=== PATIENT | male | born 1995 | race Hispanic/Latino ===

== ENCOUNTER 2020-02-17 15:35 | Emergency (ER) | payer SELFPAY ==
--- NOTE | 2020-02-17 17:27 | RAD REPORT ---
EXAM DESCRIPTION: RAD - Chest Single View - 02/17/2020 5:14 pm CLINICAL HISTORY: DYSPNEA COMPARISON: None TECHNIQUE: AP portable chest image was obtained 02/17/2020 5:14 pm . FINDINGS: Lungs are clear. Heart and vasculature are normal. No measurable pleural effusion and no p neumothorax. No acute bony abnormality seen. No acute aortic findings suspected. IMPRESSION: No acute cardiopulmonary process.
[2020-02-17] MEDS ORDERED: NA CHLORIDE 0.9% 1,000 ML ONE (17:37)
[2020-02-17] MEDS ORDERED: FENTANYL CITR 100 MCG/2 ML ONE (17:37)
[2020-02-17 18:02] LABS: Albumin 3.8 g/dL (3.4-5.0); Bilirubin Direct 0.1 mg/dL (0-0.2); Bilirubin Total 0.4 mg/dL (0.2-1.0); Ferritin 151.9 ng/mL (26-388); Potassium 3.9 mmol/L (3.5-5.1); Protein, Total 7.7 g/dL (6.4-8.2)
[2020-02-17 18:21] LABS: Absolute Lymphocytes (CBC) 1.4 K/uL (0.7-4.9); Basophils % 0.2 % (0-1.3); Lymphocytes % 21.9 % (15.3-44.8); MPV 9.2 fL (7.6-11.3); RBC Red Blood Cell Count 5.15 M/uL (4.33-5.43)
[2020-02-17 18:31] LABS: Urine Blood NEGATIVE (NEG); Urine Glucose NEGATIVE (NEG); Urine Protein NEGATIVE (NEG)
--- NOTE | 2020-02-17 19:34 | RAD REPORT ---
EXAM DESCRIPTION: CT - Chest For Pe Angio - 02/17/2020 7:17 pm CLINICAL HISTORY: Cough;Chest pain Cough;Chest pain COVID positive abdominal pain COMPARISON: Chest Single View dated 02/17/2020 TECHNIQUE: Dynamically enhanced 3 mm thick images of the chest were obtained during administration o f approximately 150mL Isovue 370 IV contrast. Coronal and oblique MIP reconstruction images were gene rated and reviewed. Exam utilizes a protocol to evaluate the pulmonary arterial tree. All CT scans are performed using dose optimization technique as appropriate and may include automated exposure control or mA/KV adjustment according to patient size. FINDINGS: No pulmonary emboli are identified. The aorta as imaged shows no acute or suspicious finding. No pericardial thickening or effusion. No mass or consolidation of the lung parenchyma. Ground-glass opacities are present in the posterior peripheral aspects of each lower lobe. Trace amount of ground-glass opacification present in the bernadine pheral right middle lobe. No endobronchial lesion. No cavitation, abscess or other complication. No p leural effusion or pleural thickening. No mediastinal or hilar suspicious masses. No chest wall masses or abnormal axillary lymphadenopathy. IMPRESSION: No pulmonary emboli identified. Ground-glass opacification pattern is present. This is a nonspecific pneumonia pattern. Given the pro vided history, this is most likely COVID-19 pneumonia.
[2020-02-17] MEDS ORDERED: MORPHINE 2 MG/ML SYR ONE (19:59)
[2020-02-17] MEDS ORDERED: PROMETHAZINE INJ 25 MG/ML AMP ONE (19:59)
[2020-02-17] MEDS ORDERED: dexAMETHasone 10 MG/ML VIAL ONE (20:00)
[2020-02-17] MEDS ORDERED: NA CHLORIDE 0.9% 250 ML ONE (20:00)
[2020-02-17] MEDS ORDERED: AZITHROMYCIN 500 MG INJ IVPB ONE (20:00)
--- NOTE | 2020-02-17 20:50 | ER ---
Nurse's Notes [facility] Name: Jone Peña Age: 24 yrs Sex: Male : 1995 Arrival Date: 02/17/2020 Time: 15:37 Bed 16 Private MD: Diagnosis: Pneumonia due to SARS-associated coronavirus;Upper abdominal pain, unspecified Presentation: 02/16 15:53 Chief complaint: Patient states: Tested positive on 02-14-2020 at urgent care, reports jl7 LUQ abd pain x 3 days, denies N/V/D. Coronavirus screen: Client denies travel out of the [place] in the last 14 days. At this time, the client does not indicate any symptoms associated with coronavirus-19. Ebola Screen: No symptoms or risks identified at this time. Initial Sepsis Screen: Does the patient meet any 2 criteria? HR > 90 bpm. Does the patient have a suspected source of infection? Yes: Acute abdominal pain. Risk Assessment: Do you want to hurt yourself or someone else? Patient reports no desire to harm self or others. Onset of symptoms was February 14, 2020. Care prior to arrival: None. 15:53 Method Of Arrival: Ambulatory [facility] 15:53 Acuity: LEONEL 3 jl7 Triage Assessment: 15:57 General: Appears in no apparent distress. uncomfortable, Behavior is calm, cooperative, jl7 appropriate for age. Pain: Complains of pain in left upper quadrant Pain currently is 9 out of 10 on a pain scale. Neuro: GI: Patient currently denies diarrhea, nausea, vomiting. Historical: - Allergies: 15:57 No Known Allergies; jl7 - Home Meds: 15:57 None [Active]; jl7 - PMHx: 15:57 None; jl7 - PSHx: 15:57 None; jl7 - Immunization history:: Adult Immunizations not up to date. - Social history:: Smoking status: Patient denies any tobacco usage or history of. Screenin:41 Abuse screen: Denies threats or abuse. Denies injuries from another. Nutritional zb screening: No deficits noted. Tuberculosis screening: No symptoms or risk factors identified. Fall Risk None identified. Assessment: 17:37 General: Appears in no apparent distress. uncomfortable, Behavior is calm, cooperative, zb appropriate for age, Reports chills for 2-3 days, fever for 2-3 days, feeling ill for 2-3 days, fatigue for 2-3 days. Pain: Complains of pain in abdomen and left upper quadrant Pain does not radiate. Pain currently is 8 out of 10 on a pain scale. Quality of pain is described as burning, aching, Is continuous. Neuro: Level of Consciousness is awake, alert, obeys commands, Oriented to person, place, time, situation. Cardiovascular: Capillary refill < 3 seconds in bilateral fingers Patient's skin is warm and dry. Respiratory: Airway is patent Respiratory effort is even, unlabored, Respiratory pattern is regular, symmetrical. GI: Abdomen is flat, non-distended, Bowel sounds present X 4 quads. Abd is soft and non tender in right upper quadrant, right lower quadrant and left lower quadrant Abdomen is tender to palpation in left upper quadrant Mass noted in left upper quadrant. : No signs and/or symptoms were reported regarding the genitourinary system. EENT: No signs and/or symptoms were reported regarding the EENT system. Derm: Skin is intact, is healthy with good turgor, Skin is dry, Skin is normal. Musculoskeletal: Circulation, motion, and sensation intact. Capillary refill < 3 seconds, in bilateral fingers. Range of motion: intact in all extremities. 18:37 Reassessment: Patient appears in no apparent distress at this time. Patient and/or ll2 family updated on plan of care and expected duration. Pain level reassessed. Patient is alert, oriented x 3, equal unlabored respirations, skin warm/dry/pink. family at bedside. 19:30 Reassessment: Patient and/or family updated on plan of care and expected duration. Pain ll2 level reassessed. Patient is alert, oriented x 3, equal unlabored respirations, skin warm/dry/pink. 21:07 Reassessment: Patient and/or family updated on plan of care and expected duration. Pain ll2 level reassessed. Patient is alert, oriented x 3, equal unlabored respirations, skin warm/dry/pink. 21:10 Reassessment: awaiting completion of IV antibiotics for D/c. ll2 21:35 Reassessment: Patient and/or family updated on plan of care and expected duration. Pain ll2 level reassessed. Patient is alert, oriented x 3, equal unlabored respirations, skin warm/dry/pink. Vital Signs: 15:53 BP 116 / 78; Pulse 105; Resp 19; Temp 99.2; Pulse Ox 99% ; Weight 69.85 kg; Height 5 jl7 ft. 7 in. (170.18 cm); Pain 9/10; 18:45 BP 116 / 78; Pulse 106; Resp 20; Pulse Ox 99% on R/A; ll2 19:45 BP 112 / 73; Pulse 101; Resp 18; Temp 99.8; Pulse Ox 100% on R/A; ll2 20:54 BP 112 / 69; Pulse 106; Resp 18; Temp 99.9; Pulse Ox 100% on R/A; ll2 15:53 Body Mass Index 24.12 (69.85 kg, 170.18 cm) jl7 ED Course: 15:37 Patient arrived in ED. ag5 15:57 Triage completed. jl7 15:57 Arm band placed on right wrist. jl7 16:23 Yasmin Payton FNP-C is [facility]. snw 16:23 Omar Theodore MD is Attending Physician. snw 17:12 Nikia Watters, BENJI is Primary Nurse. zb 17:14 Chest Single View XRAY In Process Unspecified. EDMS 17:25 Inserted saline lock: 20 gauge in left antecubital area, using aseptic technique. Blood dh4 collected. 17:41 Patient has correct armband on for positive identification. Placed in gown. Call light zb in reach. Side rails up X 1. Door closed. Noise minimized. 19:17 CT Chest For PE Angio In Process Unspecified. EDMS 21:35 No provider procedures requiring assistance completed. IV discontinued, intact, ll2 bleeding controlled, No redness/swelling at site. Pressure dressing applied. Administered Medications: 17:32 Drug: fentaNYL (PF) 25 mcg Route: IVP; Site: left antecubital; zb 18:32 Follow up: Response: No adverse reaction; RASS: Alert and Calm (0) ll2 17:36 Drug: NS 0.9% 1000 ml Route: IV; Rate: 1 bolus; Site: left femoral; zb 18:45 Follow up: Response: No adverse reaction; IV Status: Completed infusion; IV Intake: ll2 1000ml 20:30 Drug: Phenergan 12.5 mg Route: IVP; Site: left antecubital; ll2 20:50 Follow up: Response: No adverse reaction ll2 20:30 Drug: Zithromax 500 mg Route: IVPB; Infused Over: 1 hrs; Site: left antecubital; ll2 20:50 Follow up: Response: No adverse reaction; IV Status: Completed infusion; IV Intake: ll2 250ml 20:30 Drug: Decadron - Dexamethasone 10 mg Route: IVP; Site: left antecubital; ll2 20:51 Follow up: Response: No adverse reaction ll2 20:31 Drug: morphine 2 mg Route: IVP; Site: left antecubital; ll2 20:50 Follow up: Response: No adverse reaction ll2 Intake: 18:45 IV: 1000ml; Total: 1000ml. ll2 20:50 IV: 250ml; Total: 1250ml. ll2 Outcome: 20:49 Discharge ordered by . snw 21:36 Discharged to home ambulatory. ll2 21:36 Condition: stable 21:36 Discharge instructions given to patient, Instructed on discharge instructions, follow up and referral plans. medication usage, Demonstrated understanding of instructions, follow-up care, medications, Prescriptions given X 3. 21:37 Patient left the ED. ll2 Signatures: Dispatcher [employer] EDMS Yasmin Payton, ASSISTANT GENERAL MANAGER-C ASSISTANT GENERAL MANAGER-Ronenw Michael Zaman RN RN valentina7 Tyler Bruce [facility] Lexa Keith 4 Tatiana Nassar RN RN ll2 Nikia Watters RN RN zb
--- NOTE | 2020-02-17 20:50 | EDPHYS ---
Physician Documentation [facility] Name: Jone Peña Age: 24 yrs Sex: Male : 1995 Arrival Date: 02/17/2020 Time: 15:37 Bed 16 Private MD: ED Physician Omar Theodore HPI: 02/16 17:43 This 24 yrs old Male presents to ER via Ambulatory with complaints of COVID+, snw Abdominal Pain. 17:43 The patient presents with abdominal pain in the left upper quadrant. Onset: The snw symptoms/episode began/occurred gradually, 3 day(s) ago, and became worse today, and became persistent. The symptoms do not radiate. Associated signs and symptoms: none. The symptoms are described as constant. Severity of pain: At its worst the pain was moderate severe. The patient has not experienced similar symptoms in the past. The patient has been recently seen by a physician: Makayla 19 +. Historical: - Allergies: 15:57 No Known Allergies; jl7 - Home Meds: 15:57 None [Active]; jl7 - PMHx: 15:57 None; jl7 - PSHx: 15:57 None; jl7 - Immunization history:: Adult Immunizations not up to date. - Social history:: Smoking status: Patient denies any tobacco usage or history of. ROS: 17:42 Constitutional: Negative for fever, chills, and weight loss, Eyes: Negative for injury, snw pain, redness, and discharge, ENT: Negative for injury, pain, and discharge, Neck: Negative for injury, pain, and swelling, Cardiovascular: Negative for chest pain, palpitations, and edema, Respiratory: Negative for shortness of breath, cough, wheezing, and pleuritic chest pain, Back: Negative for injury and pain, : Negative for injury, bleeding, discharge, and swelling, MS/Extremity: Negative for injury and deformity, Skin: Negative for injury, rash, and discoloration, Neuro: Negative for headache, weakness, numbness, tingling, and seizure, Psych: Negative for depression, anxiety, suicide ideation, homicidal ideation, and hallucinations. 17:42 Abdomen/GI: Positive for abdominal pain. Exam: 17:41 Constitutional: This is a well developed, well nourished patient who is awake, alert, snw and in no acute distress. Head/Face: Normocephalic, atraumatic. Eyes: Pupils equal round and reactive to light, extra-ocular motions intact. Lids and lashes normal. Conjunctiva and sclera are non-icteric and not injected. Cornea within normal limits. Periorbital areas with no swelling, redness, or edema. ENT: Nares patent. No nasal discharge, no septal abnormalities noted. Tympanic membranes are normal and external auditory canals are clear. Oropharynx with no redness, swelling, or masses, exudates, or evidence of obstruction, uvula midline. Mucous membranes moist. Neck: Trachea midline, no thyromegaly or masses palpated, and no cervical lymphadenopathy. Supple, full range of motion without nuchal rigidity, or vertebral point tenderness. No Meningismus. Chest/axilla: Normal chest wall appearance and motion. Nontender with no deformity. No lesions are appreciated. Respiratory: Lungs have equal breath sounds bilaterally, clear to auscultation and percussion. No rales, rhonchi or wheezes noted. No increased work of breathing, no retractions or nasal flaring. Abdomen/GI: Soft, with normal bowel sounds. No distension or tympany. No guarding or rebound. Left upper quad tenderness Back: No spinal tenderness. No costovertebral tenderness. Full range of motion. Skin: Warm, dry with normal turgor. Normal color with no rashes, no lesions, and no evidence of cellulitis. MS/ Extremity: Pulses equal, no cyanosis. Neurovascular intact. Full, normal range of motion. Neuro: Awake and alert, GCS 15, oriented to person, place, time, and situation. Cranial nerves II-XII grossly intact. Motor strength 5/5 in all extremities. Sensory grossly intact. Cerebellar exam normal. Normal gait. Psych: Awake, alert, with orientation to person, place and time. Behavior, mood, and affect are within normal limits. 17:41 Cardiovascular: Rate: tachycardic, Rhythm: regular, Pulses: no pulse deficits are appreciated, Heart sounds: normal. Vital Signs: 15:53 BP 116 / 78; Pulse 105; Resp 19; Temp 99.2; Pulse Ox 99% ; Weight 69.85 kg; Height 5 jl7 ft. 7 in. (170.18 cm); Pain 9/10; 18:45 BP 116 / 78; Pulse 106; Resp 20; Pulse Ox 99% on R/A; ll2 19:45 BP 112 / 73; Pulse 101; Resp 18; Temp 99.8; Pulse Ox 100% on R/A; ll2 20:54 BP 112 / 69; Pulse 106; Resp 18; Temp 99.9; Pulse Ox 100% on R/A; ll2 15:53 Body Mass Index 24.12 (69.85 kg, 170.18 cm) jl7 MDM: 16:35 Patient medically screened. snw 19:23 Data reviewed: vital signs, nurses notes. Data interpreted: Pulse oximetry: on room air snw is 99 %. Interpretation: normal. Counseling: I had a detailed discussion with the patient and/or guardian regarding: the historical points, exam findings, and any diagnostic results supporting the discharge/admit diagnosis, lab results, radiology results, the need for outpatient follow up. 02/16 16:40 Order name: CBC with Diff snw 02/16 16:40 Order name: Chem 7; Complete Time: 18:35 snw 02/16 16:40 Order name: Ferritin; Complete Time: 18:35 snw 02/16 16:40 Order name: DD; Complete Time: 18:35 snw 02/16 16:40 Order name: Lipase; Complete Time: 18:35 snw 02/16 16:40 Order name: LFT's; Complete Time: 18:35 snw 02/16 16:40 Order name: Chest Single View XRAY; Complete Time: 17:33 snw 02/16 16:41 Order name: CBC with Automated Diff; Complete Time: 18:35 EDMS 02/16 16:49 Order name: Urine Dipstick--Ancillary (enter results); Complete Time: 18:35 bd 02/16 18:42 Order name: CT Chest For PE Angio; Complete Time: 20:49 snw 02/16 16:40 Order name: SL; Complete Time: 17:41 snw Administered Medications: 17:32 Drug: fentaNYL (PF) 25 mcg Route: IVP; Site: left antecubital; zb 18:32 Follow up: Response: No adverse reaction; RASS: Alert and Calm (0) ll2 17:36 Drug: NS 0.9% 1000 ml Route: IV; Rate: 1 bolus; Site: left femoral; zb 18:45 Follow up: Response: No adverse reaction; IV Status: Completed infusion; IV Intake: ll2 1000ml 20:30 Drug: Phenergan 12.5 mg Route: IVP; Site: left antecubital; ll2 20:50 Follow up: Response: No adverse reaction ll2 20:30 Drug: Zithromax 500 mg Route: IVPB; Infused Over: 1 hrs; Site: left antecubital; ll2 20:50 Follow up: Response: No adverse reaction; IV Status: Completed infusion; IV Intake: ll2 250ml 20:30 Drug: Decadron - Dexamethasone 10 mg Route: IVP; Site: left antecubital; ll2 20:51 Follow up: Response: No adverse reaction ll2 20:31 Drug: morphine 2 mg Route: IVP; Site: left antecubital; ll2 20:50 Follow up: Response: No adverse reaction ll2 Disposition: 02/17 07:50 Co-signature as Attending Physician, Omar Theodore MD I agree with the assessment and kdr plan of care. Disposition: 02/17/20 20:49 Discharged to Home. Impression: Pneumonia due to SARS-associated coronavirus, Upper abdominal pain, unspecified. - Condition is Stable. - Discharge Instructions: Abdominal Pain, Adult, Aspirin and Your Heart, Rehydration, Adult, COVID-19. - Prescriptions for Bentyl 20 mg Oral Tablet - take 1 tablet by ORAL route every 6 hours As needed; 20 tablet. Prednisone 20 mg Oral Tablet - take 2 tablet by ORAL route once daily for 5 days; 10 tablet. Zithromax 500 mg Oral Tablet - take 1 tablet by ORAL route once daily for 5 days; 5 tablet. - Work release form, Medication Reconciliation Form, Thank You Letter, Antibiotic Education, Prescription Opioid Use form. - Follow up: Emergency Department; When: As needed; Reason: Worsening of condition. Follow up: Private Physician; When: 2 - 3 days; Reason: Recheck today's complaints, Continuance of care, Re-evaluation by your physician. Signatures: Dispatcher [employer] EDCT Omar Theodore MD MD kdr Waters, Shelly, BONG-C BEAUTY SPECIALIST-Ronenw Michael Zaman RN RN jl7 Tatiana Nassar RN RN ll2 Brown, Nikia, RN RN zb Corrections: (The following items were deleted from the chart) 02/16 21:37 20:49 02/17/2020 20:49 Discharged to Home. Impression: Pneumonia due to SARS-associated ll2 coronavirus; Upper abdominal pain, unspecified. Condition is Stable. Discharge Instructions: Abdominal Pain, Adult, Aspirin and Your Heart, Rehydration, Adult, COVID-19. Prescriptions for Bentyl 20 mg Oral Tablet - take 1 tablet by ORAL route every 6 hours As needed; 20 tablet, Prednisone 20 mg Oral Tablet - take 2 tablet by ORAL route once daily for 5 days; 10 tablet, Zithromax 500 mg Oral Tablet - take 1 tablet by ORAL route once daily for 5 days; 5 tablet. and Forms are Work release form, Medication Reconciliation Form, Thank You Letter, Antibiotic Education, Prescription Opioid Use. Follow up: Emergency Department; When: As needed; Reason: Worsening of condition. Follow up: Private Physician; When: 2 - 3 days; Reason: Recheck today's complaints, Continuance of care, Re-evaluation by your physician. snw
[2020-02-18 14:34] VITALS: O2SAT 100
[2020-02-18 14:35] VITALS: BP 112/69; TEMP 99.9
== END 2020-02-17 21:37 | disposition home or self-care (01) ==
LOC: ER 15:35
DX: U07.1 COVID-19 (principal); J12.89 Other viral pneumonia
CPT/HCPCS: 36415; 71045; 71275; 80048; 80076; 81003; 82728; 83690; 85025; 85379; 96361; 96365; 96375; 99284; J0456; J1100; J2270; J2550; J3010; J7030; J7050; Q9967

== ENCOUNTER 2024-05-04 17:28 | Emergency (ER) | payer SELFPAY ==
[2024-05-04 20:15] LABS: Specific Gravity 1.027 (1.005-1.030); Sqamous Epithelial None Seen /HPF (None Seen); Urine Bacteria None Seen /HPF (<20); Urine Bilirubin NEGATIVE (Negative); Urine Blood Negative (Negative); Urine Clarity Extremely Turbid (Clear); Urine Color Yellow (Yellow); Urine Crystals Unidentified Moderate /HPF (None Seen); Urine Culture Reflex Order REFLEXED; Urine Glucose NEGATIVE (Negative); Urine Ketones NEGATIVE (Negative); Urine Microscopic Reflex YN ORDER UMIC; Urine Nitrite NEGATIVE (Negative); Urine Protein TRACE (Negative); Urine Urobilinogen Normal (Normal); Urine WBC 20-50 /HPF (<5); Urine WBC Clump Many /HPF (None Seen); Urine Yeast (Budding) Many /HPF (None Seen)
--- NOTE | 2024-05-04 20:30 | ER ---
Nurse's Notes [facility] Name: Jone Peña Age: 28 yrs Sex: Male : 1995 Arrival Date: 05/04/2024 Time: 17:28 Bed IW2 Private MD: Diagnosis: UTI/ Urinary tract infection, site not specified Presentation: 05/04 17:47 Chief complaint: Patient states: Frequent urination and burning while urinating X 2 ld1 weeks. Flank pain. Coronavirus screen: At this time, the client does not indicate any symptoms associated with coronavirus-19. Ebola Screen: No symptoms or risks identified at this time. Initial Sepsis Screen: Does the patient meet any 2 criteria? No. Patient's initial sepsis screen is negative. Does the patient have a suspected source of infection? No. Patient's initial sepsis screen is negative. Risk Assessment: Do you want to hurt yourself or someone else? Patient reports no desire to harm self or others. Onset of symptoms was May 04, 2024. 17:47 Method Of Arrival: Ambulatory ld1 17:47 Acuity: LEONEL 3 ld1 Triage Assessment: 17:48 General: Appears in no apparent distress. comfortable, Behavior is calm, cooperative, ld1 appropriate for age. Pain: Complains of pain in low back area Pain does not radiate. Pain currently is 7 out of 10 on a pain scale. Quality of pain is described as throbbing, Pain began suddenly, Is continuous. EENT: No signs and/or symptoms were reported regarding the EENT system. Neuro: Level of Consciousness is awake, alert, obeys commands, Oriented to person, place, time, situation. Cardiovascular: Capillary refill < 3 seconds Patient's skin is warm and dry. Respiratory: Airway is patent Respiratory effort is even, unlabored. GI: Abdomen is flat, non-distended. : No signs and/or symptoms were reported regarding the genitourinary system. : Reports burning with urination, pain in bilateral flank(s), urinary frequency. Derm: No signs and/or symptoms reported regarding the dermatologic system. Historical: - Allergies: 17:47 No Known Allergies; ld1 - Home Meds: 17:47 None [Active]; ld1 - PMHx: 17:47 None; ld1 - PSHx: 17:47 None; ld1 - Immunization history:: Adult Immunizations up to date. - Infectious Disease History:: Denies. - Social history:: Smoking status: Patient denies any tobacco usage or history of. Screenin:47 [facility] ED Fall Risk Assessment (Adult) History of falling in the last 3 months, bm8 including since admission No falls in past 3 months (0 pts) Confusion or Disorientation No (0 pts) Intoxicated or Sedated No (0 pts) Impaired Gait No (0 pts) Mobility Assist Device Used No (0 pt) Altered Elimination No (0 pt) Score/Fall Risk Level 0 - 2 = Low Risk Oriented to surroundings, Maintained a safe environment, Educated pt \T\ family on fall prevention, incl call for assistance when getting out of bed, Assessed \T\ reinforced patient's understanding of fall precautions, Hourly rounding (assess needs \T\ fall precautionary measures) done, Used ambulatory aids as needed (educated on \T\ assisted with), Used gait belt as appropriate. Abuse screen: Denies threats or abuse. Nutritional screening: No deficits noted. Tuberculosis screening: No symptoms or risk factors identified. Assessment: 20:47 Reassessment: Patient appears in no apparent distress at this time. Patient and/or bm8 family updated on plan of care and expected duration. Pain level reassessed. Patient is alert, oriented x 3, equal unlabored respirations, skin warm/dry/pink. Patient states feeling better. Vital Signs: 17:48 BP 132 / 79; Pulse 91; Resp 18; Temp 97.6(TE); Pulse Ox 100% on R/A; Weight 75.3 kg; ld1 Height 5 ft. 7 in. ; Pain 0/10; 20:47 BP 135 / 76; Pulse 96; Resp 18; Temp 97.6; Pulse Ox 99% ; Pain 2/10; bm8 17:48 Body Mass Index 26.00 (75.30 kg, 170.18 cm) ld1 17:48 Pain Scale: Adult ld1 20:47 Pain Scale: Adult bm8 Dot Coma Score: 20:47 Eye Response: spontaneous(4). Motor Response: obeys commands(6). Verbal Response: bm8 oriented(5). Total: 15. ED Course: 17:31 Patient arrived in ED. cj3 17:33 Selma Kearns FNP-C is [facility]. kb 17:33 Janusz Sloan MD is Attending Physician. kb 17:47 Triage completed. ld1 17:48 Arm band placed on right wrist. ld1 20:05 Urinalysis w/ reflexes Sent. rv1 20:46 Terry Ruff, RN is Primary Nurse. bm8 20:47 Patient has correct armband on for positive identification. Placed in gown. Bed in low bm8 position. Call light in reach. Side rails up X 1. Provided Education on: post er care. Client placed on continuous cardiac and pulse oximetry monitoring. NIBP monitoring applied. Pulse ox on. NIBP on. 20:47 No provider procedures requiring assistance completed. Patient did not have IV access bm8 during this emergency room visit. Administered Medications: 20:36 Drug: Amoxicillin-Clavulanate PO 875 mg PO once Route: PO; bm8 20:49 Follow up: Response: No adverse reaction bm8 Medication: 20:47 VIS not applicable for this client. bm8 Outcome: 20:29 Discharge ordered by . kb 20:47 Discharged to home ambulatory, bm8 20:47 Condition: stable 20:47 Discharge instructions given to patient, family, Instructed on discharge instructions, follow up and referral plans. no drinking with medication, no driving heavy equipment, medication usage, safety practices, Demonstrated understanding of instructions, follow-up care, medications, Prescriptions given X 1, 20:49 Patient left the ED. bm8 Signatures: Selma Kearns FNP-C FNP-Ckb Sims, Lauren, RN RN ld1 Dee Dee Márquez rv1 Terry Ruff, RN RN bm8 Citlali Moseley cj3 Corrections: (The following items were deleted from the chart) 17:48 17:47 Chief complaint: Patient states: Frequent urination and burning while urinating X ld1 2 weeks ld1 17:48 17:47 PMHx: Unable to Obtain; ld1 ld1 17:48 17:47 PMHx: None; ld1 ld1
--- NOTE | 2024-05-04 20:30 | EDPHYS ---
Physician Documentation [facility] Name: Jone Peña Age: 28 yrs Sex: Male : 1995 Arrival Date: 05/04/2024 Time: 17:28 Bed IW2 Private MD: ED Physician Janusz Sloan HPI: 05/04 17:50 This 28 yrs old Male presents to ER via Ambulatory with complaints of kb Abdominal Pain, Urinary Frequency. 17:50 Patient is a 28-year-old male who presents for urinary frequency, urinating small kb amounts and suprapubic pain that started 2 weeks ago. Denies fever, nausea, vomiting, hematuria, flank pain.. Historical: - Allergies: 17:47 No Known Allergies; ld1 - Home Meds: 17:47 None [Active]; ld1 - PMHx: 17:47 None; ld1 - PSHx: 17:47 None; ld1 - Immunization history:: Adult Immunizations up to date. - Infectious Disease History:: Denies. - Social history:: Smoking status: Patient denies any tobacco usage or history of. ROS: 17:51 Constitutional: As per HPI kb Exam: 17:51 Constitutional: This is a well developed, well nourished patient who is awake, alert, kb and in no acute distress. Head/Face: Normocephalic, atraumatic. ENT: Moist Mucous membranes Cardiovascular: Regular rate Respiratory: Respirations even and unlabored. No increased work of breathing. Talking in full sentences Back: No spinal tenderness. No costovertebral tenderness. Full range of motion. Skin: Warm, dry with normal turgor. Normal color. MS/ Extremity: Pulses equal, no cyanosis. Neurovascular intact. Full, normal range of motion. Neuro: Awake and alert, GCS 15, oriented to person, place, time, and situation. 17:51 Abdomen/GI: Inspection: abdomen appears normal, Bowel sounds: normal, Palpation: soft, in all quadrants, mild abdominal tenderness, in the suprapubic area, Vital Signs: 17:48 BP 132 / 79; Pulse 91; Resp 18; Temp 97.6(TE); Pulse Ox 100% on R/A; Weight 75.3 kg; ld1 Height 5 ft. 7 in. ; Pain 0/10; 20:47 BP 135 / 76; Pulse 96; Resp 18; Temp 97.6; Pulse Ox 99% ; Pain 2/10; bm8 17:48 Body Mass Index 26.00 (75.30 kg, 170.18 cm) ld1 17:48 Pain Scale: Adult ld1 20:47 Pain Scale: Adult bm8 Colver Coma Score: 20:47 Eye Response: spontaneous(4). Motor Response: obeys commands(6). Verbal Response: bm8 oriented(5). Total: 15. MDM: 17:33 Medical Screening Exam initiated kb 20:28 Differential diagnosis: non-specific abd pain, Ureterolithiasis, urinary tract kb infection. Data reviewed: vital signs, nurses notes. Test considered but Not performed: Labs: cbc, cmp considered but pt is nontoxic in appearance, VS stable. CT: ct stone considered but pt has no CVA tenderness. Counseling: I had a detailed discussion with the patient and/or guardian regarding the historical points, exam findings, and any diagnostic results supporting the discharge/admit diagnosis, lab results, the need for outpatient follow up, a family practitioner, to return to the emergency department if symptoms worsen or persist or if there are any questions or concerns that arise at home. 05/04 17:50 Order name: Urinalysis w/ reflexes; Complete Time: 20:19 kb 05/04 20:19 Order name: Urine Culture EDMS Administered Medications: 20:36 Drug: Amoxicillin-Clavulanate PO 875 mg PO once Route: PO; bm8 20:49 Follow up: Response: No adverse reaction bm8 Disposition Summary: 05/04/24 20:29 Discharge Ordered Notes: Location: Home kb Condition: Stable kb Diagnosis - UTI/ Urinary tract infection, site not specified kb Followup: kb - With: Private Physician - When: 2 - 3 days - Reason: Recheck today's complaints, Continuance of care, Re-evaluation by your physician Followup: kb - With: Emergency Department - When: As needed - Reason: Worsening of condition Discharge Instructions: - Discharge Summary Sheet kb - Urinary Tract Infection, Adult, [id number] kb Forms: - Medication Reconciliation Form kb - Antibiotic Education kb - Prescription Opioid Use kb - Patient Portal Instructions kb - Leadership Thank You Letter kb Prescriptions: - Augmentin 875-125 mg Oral Tablet - take 1 tablet ORAL route every 12 hours for 10 days; 20 tablet; Refills: 0, kb Product Selection Permitted Signatures: Dispatcher [employer] Selma Frost, Aileen French RN RN ld1 Terry Ruff RN RN bm8 Corrections: (The following items were deleted from the chart) 17:48 17:47 PMHx: Unable to Obtain; ld1 ld1 17:48 17:47 PMHx: None; ld1 ld1
[2024-05-04] MEDS ORDERED: AMOX/K CLAV 875 MG TAB ONE (20:35)
[2024-05-04 20:53] VITALS: TEMP 97.6
[2024-05-04 20:54] VITALS: BP 135/76; O2SAT 99
== END 2024-05-04 20:49 | disposition home or self-care (01) ==
LOC: ER 17:28
DX: N39.0 Urinary tract infection, site not specified (principal)
CPT/HCPCS: 81001; 87086; 87088